=== PATIENT | female | born 1985 | race Caucasian/White ===

== ENCOUNTER 2017-01-09 16:46 | Emergency (ER) | payer SELFPAY ==
[2017-01-09 17:34] VITALS: BP 121/86
[2017-01-09] MEDS ORDERED: MOTRIN PO ONE (20:01)
--- NOTE | 2017-01-09 20:55 | Emergency Department Report ---
Entered by WAI CORDOVA, acting as scribe for YUN DOMINGUEZ PA. - General Chief Complaint: Upper Respiratory Infection Stated Complaint: FLU SX/ WEAK Time Seen by Provider: 01/09/17 20:00 Source: patient Mode of arrival: Ambulatory Limitations: Language Barrier - History of Present Illness Initial Comments: 31 year female presents to the ED c/o chills and body aches beginning today. Pt did not take any medication for her symptoms [employer]. No alleviating or aggravating factors. Associated symptoms of sore throat, headache, and nasal congestion, and denies nausea, vomiting, diarrhea, rhinorrhea, sneezing, numbness, weakness , chest pain, and SOB. MD Complaint: other (body aches, chills) -: This morning Severity: moderate Consistency: constant Improves With: nothing Worsens With: nothing Context: other (unknown) Associated Symptoms: chills, myalgias, headache, nasal congestion, sore throat. denies: nausea, vomiting, diarrhea, other (rhinorrhea, sneezing) Treatments Prior to Arrival: none - Related Data Previous Rx's Medication Instructions Recorded Last Taken Type Fluticasone [Flonase] 1 spray NS QDAY #1 bottle 01/09/17 Unknown Rx Loratadine [Claritin] 10 mg PO DAILY #30 tablet 01/09/17 Unknown Rx Allergies Allergy/AdvReac Type Severity Reaction Status Date / Time No Known Allergies Allergy Unverified 01/09/17 17:29 ED Review of Systems Comment: All other systems reviewed and negative Constitutional: chills, other (body aches) ENT: throat pain, congestion. denies: other (rhinorrhea) Respiratory: denies: shortness of breath Cardiovascular: denies: chest pain Gastrointestinal: denies: abdominal pain, nausea, vomiting, diarrhea Neurological: headache. denies: weakness, numbness ED Past Medical Hx - Surgical History Past Surgical History?: No - Social History Smoking Status: Current Every Day Smoker Substance Use Type: Alcohol - Medications Home Medications: Home Medications Medication Instructions Recorded Confirmed Last Taken Type Fluticasone [Flonase] 1 spray NS QDAY #1 bottle 01/09/17 Unknown Rx Loratadine [Claritin] 10 mg PO DAILY #30 tablet 01/09/17 Unknown Rx ED Physical Exam - General Limitations: Language Barrier - Other Other exam information: GENERAL: Patient is alert and oriented x 3. No apparent distress, normal gait, atraumatic. HEAD: Head is normocephalic and atraumatic. EYES: Extraocular movements are intact. Pupils are equal, round, and reactive to light and accommodation. EARS: Symmetrical, atraumatic, non tender, ear canal clear with moderate cerumen , tympanic membrane non inflamed. Gross auditory nml bilaterally. NOSE: Nose symmetrical, nontender. Nares appeared normal. MOUTH:Mouth is well hydrated and without lesions. Mucous membranes are moist. Uvula midline. Tongue not elevated. Posterior pharynx clear, no exudate or lesions. Tonsils are not erythematous or swollen. Patent airway. NECK: Supple. Non edematous, no carotid bruits. No lymphadenopathy or thyromegaly. LUNGS: Symmetrical with respiration. No wheezing, rales or crackles, CTAB. HEART: Regular rate and rhythm with normal S1/S2 present. No murmurs, rubs, or gallops. ABDOMEN: Soft, nondistended. Nontender to palpation on all quadrants. No organomegaly was noted. Positive bowel sounds. No CVA tenderness. EXTREMITIES/MUSCULOSKELETAL: No cyanosis, clubbing, rash, lesions or edema. Full ROM bilaterally. UE/LE Pulses 2+ bilaterally. LE and UE 5+ strength bilaterally SKIN: Warm and dry. No lesions, ulceration or induration present NEUROLOGIC: No focal deficit. ED Course Vital Signs 01/09/17 17:29 Temperature 99.7 F H Pulse Rate 80 Respiratory 18 Rate Blood Pressure 121/86 O2 Sat by Pulse 100 Oximetry ED Medical Decision Making - Medical Decision Making Patient was evaluated by the provider in fast track. 31 y/o female presents complaining of flu-like symptoms (body aches, chills, headache) beginning today. Patient's flu swab is negative for influenza A and B. Patient is in no acute distress at this time. She will be discharged home with Claritin 10 mg and Flonase 50mcg daily and is encouraged to follow up with a primary care provider. She is encouraged to return to the emergency room for any worsening symptoms. ED Disposition Clinical Impression: URI, acute Disposition: DISCHARGED TO HOME OR SELFCARE Is pt being admited?: No Does the pt Need Aspirin: No Condition: Stable Instructions: Allergic Rhinitis (ED) Additional Instructions: Please follow up with her primary care provider if medication does not improve or allergies. Prescriptions: Fluticasone [Flonase] 1 spray NS QDAY #1 bottle Loratadine [Claritin] 10 mg PO DAILY #30 tablet Referrals: PRIMARY CARE, [Primary Care Provider] - 3-5 Days Forms: Work/School Release Form(ED) This documentation as recorded by the TASHA to GRACE,accurately reflects the service I personally performed and the decisions made by ,YUN DOMINGUEZ PA.
== END 2017-01-09 20:55 | disposition home or self-care (01) ==
LOC: ED 16:46
DX: J06.9 Acute upper respiratory infection, unspecified (principal); F17.200 Nicotine dependence, unspecified, uncomplicated
CPT/HCPCS: 87400; 99283